=== PATIENT | male | born 1985 | race African-American/Black ===

== ENCOUNTER 2020-06-08 15:25 | Emergency (ER) | payer MEDICAID, SELFPAY ==
[~2020-06-08] VITALS: Ht 172.7 cm; Wt 90.7 kg
[2020-06-08 15:39] VITALS: BP 142/92
--- NOTE | 2020-06-08 15:46 | NUR ---
C/O COUGH, FEVER,HA7/10, BODY ACHE, DIZZY X 1 WEEK.
--- NOTE | 2020-06-08 16:10 | NUR ---
COVID SWAB COLLECTED.
--- NOTE | 2020-06-08 16:11 | NUR ---
Patient discharged with v/s stable. Written and verbal after care instructions given and explained. Patient alert, oriented and verbalized understanding of instructions. Ambulatory with steady gait. All questions addressed prior to discharge. ID band removed. Patient advised to follow up with PMD. Rx of PREDNISONE, AZITHROMYCIN & VENTOLIN given. Patient educated on indication of medication including possible reaction and side effects. Opportunity to ask questions provided and answered.
[2020-06-08 16:12] VITALS: BP 142/92
--- NOTE | 2020-06-15 10:16 | NUR ---
Covid results received from lab. Results = POSITIVE. Hard copy requested from lab and placed in infection controls mailbox.
== END 2020-06-08 16:30 | disposition home or self-care (01) ==
LOC: MED 15:25
DX: U07.1 COVID-19 (principal)
CPT/HCPCS: 99283; U0003

== ENCOUNTER 2020-12-29 15:19 | Emergency (ER) | payer OTHER, SELFPAY ==
[~2020-12-29] VITALS: Ht 170.2 cm; Wt 108.9 kg
[2020-12-29 15:20] VITALS: BP 125/64
--- NOTE | 2020-12-29 15:23 | NUR ---
to lobby a/w bed ambulatory
[2020-12-29 16:19] LABS: BASOPHILS # (AUTO) 0.1 K/uL (0.00-0.22); BASOPHILS % (AUTO) 0.9 % (0.0-2.0); EOSINOPHILS # (AUTO) 0.2 K/uL (0-0.4); EOSINOPHILS % (AUTO) 3.8 % (0.0-4.0); HEMATOCRIT 42.8 % (36-52); HEMOGLOBIN 14.1 g/dL (12.0-18.0); LYMPHOCYTES % (AUTO) 34.1 % (20.5-51.1); MEAN CORPUSCULAR HEMOGLOBIN 27 pg (27-31); MEAN CORPUSCULAR HGB CONC 33 g/dL (33-37); MEAN CORPUSCULAR VOLUME 82.6 fL (80-94); MONOCYTES # (AUTO) 0.4 K/uL (0.8-1.0); MONOCYTES % (AUTO) 7.7 % (1.7-9.3); NEUTROPHILS # (AUTO) 3.1 K/uL (1.8-7.7); NEUTROPHILS % (AUTO) 53.5 % (42.2-75.2); PLATELET COUNT (AUTO) 308 K/uL (140-450); RED BLOOD CELL COUNT(AUTO) 5.18 MIL/uL (4.20-6.10); RED CELL DISTRIBUTION WIDTH 15.2 % (11.6-13.7); WHITE BLOOD COUNT (AUTO) 5.8 K/uL (4.8-10.8)
--- NOTE | 2020-12-29 16:22 | NUR ---
Patient ambulated to bed 11 with a steady gait.
--- NOTE | 2020-12-29 16:29 | NUR ---
Patient is a 35 y/o male, AO x4, c/o chronic abdominal pain (has had for approximately 3 years) that has gotten worse over the past year. Today the pain is sharp, 5/10 on a pain scale, and associated with nausea and vomiting (last episode 3 days ago). Patient states the pain is worsened by spicy food. Patient denies CP, SOB, dysuria, hematuria, or blood in stool. NKA PMH: denies Rx: denies
[2020-12-29 16:30] LABS: ALBUMIN 4.1 g/dL (3.4-5.0); ANION GAP 10.4 (8-16); CARBON DIOXIDE 30.8 mmol/L (21-32); POTASSIUM 4.2 mmol/L (3.5-5.1); TOTAL BILIRUBIN 0.2 mg/dL (0.0-1.0)
[2020-12-29] MEDS ORDERED: OMEP20TC10 PO (17:08)
[2020-12-29] MEDS ORDERED: NAPR-54 PO (17:08)
[2020-12-29 17:23] VITALS: BP 125/64
--- NOTE | 2020-12-29 17:23 | NUR ---
Patient discharged with v/s stable. Written and verbal after care instructions given and explained. Patient alert, oriented and verbalized understanding of instructions. Ambulatory with steady gait. All questions addressed prior to discharge. ID band removed. Patient advised to follow up with PMD. Rx of OMEPRAZOLE, NAPROSYN given. Patient educated on indication of medication including possible reaction and side effects. Opportunity to ask questions provided and answered.
== END 2020-12-29 17:23 | disposition home or self-care (01) ==
LOC: MED 15:19
DX: R10.9 Unspecified abdominal pain (principal); R11.10 Vomiting, unspecified; R07.9 Chest pain, unspecified; Z79.899 Other long term (current) drug therapy
CPT/HCPCS: 36415; 71045; 80053; 83690; 83880; 84484; 85025; 93005; 99285

== ENCOUNTER 2021-02-14 16:06 | Emergency (ER) | payer OTHER, SELFPAY ==
[~2021-02-14] VITALS: Ht 170.2 cm; Wt 99.8 kg
[~2021-02-14 16:06] MED LIST: NAPR-54 PO; OMEP20TC10 PO
[2021-02-14 16:25] VITALS: BP 147/75
--- NOTE | 2021-02-14 16:30 | NUR ---
PT TO WAIT IN TENT.
--- NOTE | 2021-02-14 16:40 | NUR ---
NO NURSING INTERVENTIONS, NO COMPLETE ASSESSMENT.
[2021-02-14] MEDS ORDERED: PENI500T20 PO (16:55)
[2021-02-14] MEDS ORDERED: IBUP-1842 PO (16:55)
[2021-02-14 17:19] VITALS: BP 144/72
--- NOTE | 2021-02-14 17:20 | NUR ---
Patient discharged with v/s stable. Written and verbal after care instructions given PHARYNGITIS and explained. Patient alert, oriented and verbalized understanding of instructions. Ambulatory with steady gait. All questions addressed prior to discharge. ID band removed. Patient advised to follow up with PMD. Rx of PCN 500MG PO BID FOR 10DAYS, AND IBUPROFEN 400MG PO QID PRN PAIN given. Patient educated on indication of medication including possible reaction and side effects. Opportunity to ask questions provided and answered.
== END 2021-02-14 17:20 | disposition home or self-care (01) ==
LOC: MED 16:06
DX: J02.9 Acute pharyngitis, unspecified (principal); K21.9 Gastro-esophageal reflux disease without esophagitis; Z79.899 Other long term (current) drug therapy
CPT/HCPCS: 99283

== ENCOUNTER 2021-04-19 12:13 | Emergency (ER) | payer OTHER, SELFPAY ==
[~2021-04-19] VITALS: Ht 170.2 cm; Wt 125.2 kg
[~2021-04-19 12:13] MED LIST changes: +IBUP-1842 PO; +PENI500T20 PO
[2021-04-19 13:08] VITALS: BP 160/97
--- NOTE | 2021-04-19 13:11 | NUR ---
36YO M C/O PRODUCTIVE COUGH, LIGHTHEADEDNESS, SORE THROAT X 4 DAYS. PATIENT ALSO REPORTS INTERMITTENT PAIN IN R ARM, RADIATES FROM ELBOW TO WRIST. PAIN IS 6/10. REPORTS TAKING MUCINEX 2 HOURS PRIOR TO ARRIVAL. DENIES FEVER, N/V/D. STATES TO HAVE RECEIVED BOTH DOSES OF COVID VACCINATION, DENIES ANY RECENT EXPOSURE TO COVID. IN ED, BP 160/97. PT AFEBRILE. CLEAR BREATH SOUNDS. ERMD MADE AWARE OF PT STATUS. MEDHX: DENIES NKA
[2021-04-19] MEDS ORDERED: BENZ-196 PO (13:16)
[2021-04-19] MEDS ORDERED: IBUP-2218 PO (13:16)
--- NOTE | 2021-04-19 13:45 | NUR ---
Patient discharged with v/s stable. Written and verbal after care instructions given and explained. Patient alert, oriented and verbalized understanding of instructions. Ambulatory with steady gait. All questions addressed prior to discharge. ID band removed. Patient advised to follow up with PMD. Rx of Ibuprofen, Benzonatate given. Patient educated on indication of medication including possible reaction and side effects. Opportunity to ask questions provided and answered.
== END 2021-04-19 13:45 | disposition home or self-care (01) ==
LOC: MED 12:13
DX: J06.9 Acute upper respiratory infection, unspecified (principal); Z20.822 Contact with and (suspected) exposure to COVID-19; K21.9 Gastro-esophageal reflux disease without esophagitis; Z79.899 Other long term (current) drug therapy
CPT/HCPCS: 99283; U0003

== ENCOUNTER 2021-10-20 22:11 | Emergency (ER) | payer OTHER ==
[~2021-10-20] VITALS: Ht 170.2 cm; Wt 113.4 kg
[~2021-10-20 22:11] MED LIST changes: +BENZ-196 PO; +IBUP-2218 PO; +OMEP-303 PO; -OMEP20TC10 PO
[2021-10-20 22:21] VITALS: BP 137/84
--- NOTE | 2021-10-20 22:21 | NUR ---
BIBA TAKEN TO BED #1
--- NOTE | 2021-10-20 22:27 | NUR ---
36 Y/O M BIBA FROM HOME W C/O OF STOMACH PAIN WITH N/D, DARK LOOSE STOOLS, + BACK PAIN, + BODY ACHES. DENIES SOB. SINCE SUNDAY MORNING. HAD COVID MAY OF 2021 WITH SAME SYMPTOMS. TOOK IBUPROFEN WITH NO RELIF PMH: DENIES MEDS: DENIES NKDA
[2021-10-20] MEDS ORDERED: DICYCLOMINE HCL LIQUID 20 MG, ALUMINUM HYD/MAG/SIMETHICONE 30 ML, LIDOCAINE VISCOUS 2% ... PO ONE ×3 (22:55)
[2021-10-20] MEDS ORDERED: ONDANSETRON 4 MG TAB PO ONE (22:55)
[2021-10-20] MEDS ORDERED: PANTOPRAZOLE 40 MG TABEC PO ONE (22:55)
[2021-10-20] MEDS ORDERED: NACL 0.9% 1,000 ML IV SCH (22:55)
[2021-10-20] MEDS ORDERED: DICYCLOMINE HCL LIQUID 10 MG/5 ML UDC ONE (23:13)
[2021-10-20] MEDS ORDERED: ALUMINUM HYD/MAG/SIMETHICONE 30 ML UDC ONE (23:13)
--- NOTE | 2021-10-20 23:26 | NUR ---
PT REQUESTED NOT TO HAVE AN IV PLACED. WILL TAKE MEDS PO
[2021-10-20 23:28] LABS: BASOPHILS % (AUTO) 0.1 % (0.0-2.0); EOSINOPHILS % (AUTO) 0.9 % (0.0-4.0); HEMATOCRIT 43.8 % (36-52); HEMOGLOBIN 14.4 g/dL (12.0-18.0); LYMPHOCYTES # (AUTO) 0.6 K/uL (2.0-11.5); MEAN CORPUSCULAR HEMOGLOBIN 27 pg (27-31); MEAN CORPUSCULAR HGB CONC 33 g/dL (33-37); MEAN CORPUSCULAR VOLUME 80.6 fL (80-94); MONOCYTES # (AUTO) 0.2 K/uL (0.8-1.0); MONOCYTES % (AUTO) 6.4 % (1.7-9.3); NEUTROPHILS # (AUTO) 2.7 K/uL (1.8-7.7); NEUTROPHILS % (AUTO) 75.6 % (42.2-75.2); PLATELET COUNT (AUTO) 255 K/uL (140-450); RED BLOOD CELL COUNT(AUTO) 5.44 MIL/uL (4.20-6.10); RED CELL DISTRIBUTION WIDTH 15.4 % (11.6-13.7); WHITE BLOOD COUNT (AUTO) 3.6 K/uL (4.8-10.8)
[2021-10-20 23:52] LABS: ALBUMIN 3.5 g/dL (3.4-5.0); ANION GAP 9.5 (8-16); CARBON DIOXIDE 28.1 mmol/L (21-32); POTASSIUM 3.6 mmol/L (3.5-5.1); TOTAL BILIRUBIN 0.2 mg/dL (0.0-1.0)
--- NOTE | 2021-10-21 00:39 | NUR ---
Patient appears to be resting comfortably in bed. Vital Signs within normal limits. Respirations even and unlabored.
[2021-10-21] MEDS ORDERED: ONDA-188 PO (00:49)
[2021-10-21] MEDS ORDERED: PANT40EC PO (00:49)
[2021-10-21 01:07] VITALS: BP 137/84
--- NOTE | 2021-10-21 01:09 | NUR ---
Patient discharged with v/s stable. Written and verbal after care instructions given and explained. Patient alert, oriented and verbalized understanding of instructions. Ambulatory with steady gait. All questions addressed prior to discharge. ID band removed. Patient advised to follow up with PMD. Rx of ZOFRAN & PROTONIX given. Patient educated on indication of medication including possible reaction and side effects. Opportunity to ask questions provided and answered.
== END 2021-10-21 01:09 | disposition home or self-care (01) ==
LOC: MED 22:11
DX: A08.4 Viral intestinal infection, unspecified (principal); K29.70 Gastritis, unspecified, without bleeding; Z20.822 Contact with and (suspected) exposure to COVID-19; F10.11 Alcohol abuse, in remission
CPT/HCPCS: 36415; 80053; 83605; 83690; 85025; 87040; 87426; 87804; 99284; Q0162; 96360; J7030